=== PATIENT | female | born 2000 | race Caucasian/White ===

== ENCOUNTER 2025-01-02 11:28 | Emergency (ER) | payer BC ==
[~2025-01-02] VITALS: Ht 170.2 cm; Wt 60.8 kg
[2025-01-02 11:35] VITALS: TEMP 97.9
[2025-01-02] MEDS: SODIUM CHLORIDE 0.9% 500ML 500 ML IV STA (12:03)
[2025-01-02] MEDS: ADENOSINE 6 MG/2 ML VIAL IV ONE ×2 (12:03→13:00)
[2025-01-02] MEDS ORDERED: CARDIZEM CD120 MG PO (12:04)
[2025-01-02] MEDS ORDERED: CEFDINIR300 MG PO (12:27)
[2025-01-02 12:45] VITALS: PULSE 98; RESP 14; O2SAT 99
== END 2025-01-02 12:52 | disposition home or self-care (01) ==
LOC: FSED 11:41
DX: R00.2 Palpitations (principal); I47.10 Supraventricular tachycardia, unspecified; R07.89 Other chest pain; N39.0 Urinary tract infection, site not specified; R42 Dizziness and giddiness; R94.31 Abnormal electrocardiogram [ECG] [EKG]
CPT/HCPCS: 71045; 80053; 81003; 81025; 82553; 84484; 85025; 87086; 87186; 93005; 94760; 96374; 99284; J0153; J0696; J7040